=== PATIENT | male | born 1955 | race Caucasian/White ===

== ENCOUNTER 2018-12-15 11:12 | Emergency (ER) | payer OTHER ==
[~2018-12-15] VITALS: Ht 175.3 cm; Wt 100.0 kg
[2018-12-15 13:04] LABS: BASOPHILS % (AUTO) 0 % (0-1); EOSINOPHILS # (AUTO) 0.1 X10'3 (0-0.9); HEMATOCRIT 40.4 % (42.0-52.0); HEMOGLOBIN 13.9 g/dl (14.0-17.9); LYMPHOCYTES # (AUTO) 1.2 X10'3 (1.1-4.8); LYMPHOCYTES % (AUTO) 8.7 % (21-51); MEAN CORPUSCULAR HEMOGLOBIN 31.3 PG (27.0-31.0); MEAN CORPUSCULAR HGB CONC 34.3 % (33.0-36.5); MEAN CORPUSCULAR VOLUME 91.3 FL (78-98); MEAN PLATELET VOLUME 8.1 FL (7.4-10.4); MONOCYTES % (AUTO) 7.2 % (2-12); NEUTROPHILS # (AUTO) 11.3 X10'3 (1.8-7.7); NEUTROPHILS % (AUTO) 83.1 % (42-75); PLATELET COUNT 305 X10'3 (140-440); RED BLOOD COUNT 4.43 X10'6 (4.70-6.10); RED CELL DISTRIBUTION WIDTH 13.6 % (11.5-14.5); WHITE BLOOD COUNT 13.6 X10'3 (4.5-11.0)
[2018-12-15 13:11] VITALS: BP 139/73
[2018-12-15 13:19] LABS: ALANINE AMINOTRANSFERASE 35 U/L (12-78); ALBUMIN 3.5 G/DL (3.4-5.0); ALBUMIN/GLOBULIN RATIO 0.9 (1.1-1.5); ALKALINE PHOSPHATASE 67 IU/L (46-116); ANION GAP 14 (8-16); ASPARTATE AMINO TRANSFERASE 16 U/L (10-37); BILIRUBIN,TOTAL 0.3 MG/DL (0.1-1.0); BLOOD UREA NITROGEN 14 MG/DL (7-18); BUN/CREATININE RATIO 15.1 (5.4-32.0); CALCIUM 8.5 MG/DL (8.5-10.1); CHLORIDE 97 MMOL/L (99-107); CREATININE 0.93 MG/DL (0.60-1.10); GLUCOSE 128 MG/DL (70-104); POTASSIUM 3.9 MMOL/L (3.5-5.1); SODIUM 134 MMOL/L (135-145); TOTAL CARBON DIOXIDE 22.8 MMOL/L (24-32); TOTAL PROTEIN 7.3 G/DL (6.4-8.2); eGFR 82 ML/MIN
[2018-12-15 13:40] LABS: PARTIAL THROMBOPLASTIN TIME 27 SECONDS (22-32)
[2018-12-15] MEDS ORDERED: METR500T PO (14:22)
== END 2018-12-15 14:33 | disposition home or self-care (01) ==
LOC: ER 11:13
DX: K62.5 Hemorrhage of anus and rectum (principal); K52.9 Noninfective gastroenteritis and colitis, unspecified; F10.10 Alcohol abuse, uncomplicated; N21.0 Calculus in bladder
CPT/HCPCS: 36415; 74176; 80053; 85025; 85610; 85730; 99284